=== PATIENT | female | born 1940 | race Caucasian/White ===

== ENCOUNTER 2020-03-31 16:45 | Emergency (ER) | payer OTHER, SELFPAY ==
--- NOTE | ~2020-03-31 | XR_ITS ---
. EXAMINATION: XR abdomen/kub 1V DATE: 03/31/2020 18:05 INDICATION: Constipation. TECHNIQUE: A supine view of the abdomen on 2 radiographs was obtained. COMPARISON: Abdomen radiographs 05/30/2018, CT abdomen and pelvis 09/10/2018 FINDINGS: A large stool ball distends the rectum. There are no dilated loops of small bowel. There is a 13 mm stone in left kidney. IMPRESSION: 1. Stool distends the rectum. 2. Left kidney stone. Reviewed, dictated and finalized at location A.
[2020-03-31 16:52] VITALS: BP 105/53; PULSE 66; RESP 16; TEMP 36.9; O2SAT 100
[2020-03-31 17:53] LABS: Basophils Percent Auto 0.5 % (0.2-1.2); Eosinophils Absolute Auto 0.4 K/mm3 (0-0.3); Eosinophils Percent Auto 5.4 % (0-4.4); Hematocrit 35.3 % (37.0-47.0); Hemoglobin 11.6 g/dL (12.0-15.0); Immature Granulocyte Absolute 0.08 K/mm3 (0.00-0.031); Immature Granulocyte Percent A 1.2 % (0-0.5); Lymphocytes Absolute Auto 1.53 K/mm3 (0.9-3.2); Mean Corpuscular HGB Conc 32.9 g/dl (32-36); Mean Corpuscular Hemoglobin 34.8 pg (26-34); Mean Platelet Volume 10.5 fl (7.4-10.4); Monocytes Absolute Auto 0.8 K/mm3 (0.1-0.6); Neutrophils Absolute Auto 3.8 K/mm3 (1.3-6.7); Neutrophils Percent Auto 57.9 % (45.5-73.1); Platelet Count Result 231 k/mm3 (150-375); Red Blood Count 3.33 M/mm3 (4.2-5.4); Red Cell Distribution Width 15.6 % (11.5-14.5); White Blood Count 6.6 K/mm3 (4.5-10.0)
[2020-03-31 18:04] LABS: Alanine Aminotransferase 35 U/L (4-35); Albumin Level 3.3 g/dL (3.5-5.1); Alkaline Phosphatase 97 U/L (38-126); Aspartate Amino Transferase 24 U/L (14-36); Blood Urea Nitrogen 37 mg/dL (7-17); Calcium 9.7 mg/dL (8.4-10.2); Carbon Dioxide 21 mmol/L (22-30); Chloride 110 mmol/L (98-107); Estimated Glomerular Filt Rate 54; Glucose 87 mg/dL (65-105); Lipase 66 U/L (23-300); Potassium 5.4 mmol/L (3.4-5.0); Sodium 137 mmol/L (137-145)
--- NOTE | 2020-03-31 18:48 | ED.ABDPAIN ---
HPI - Abdominal Pain General Chief Complaint: Abdominal Pain Stated Complaint: no bm Time Seen by Provider: 03/31/20 18:44 Source: patient and family History of Present Illness HPI narrative: Patient is 79 years old white female lives with her daughter, came to the emergency room because of inability to push hard to get the stool out. 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 Patient denies any fever, chills, nausea, vomiting, abdominal pain. Related Data Home Medications Medication Instructions Recorded Confirmed aspirin 81 mg PO DAILY 07/03/19 09/20/19 meloxicam 7.5 mg PO HS 07/03/19 09/20/19 pravastatin 40 mg PO DAILY 07/03/19 09/20/19 Tumeric 500 mg PO DAILY 09/19/19 09/20/19 alendronate 70 mg PO WEEKLY 09/19/19 09/20/19 ascorbate calcium-bioflavonoid 1 tablet PO QID 09/19/19 09/20/19 [Katie-C with Bioflavonoids] [id number]-hpsekkbh-rmn-hyalur 1 tablet PO 09/19/19 09/20/19 [Move Free Ultra (boron)] cholecalciferol (vitamin D3) 25 mcg PO DAILY 09/19/19 09/20/19 [Vitamin D3] cyanocobalamin (vitamin B-12) 1,000 mcg PO DAILY 09/19/19 09/20/19 [Vitamin B-12] folic acid 0.4 mg PO DAILY 09/19/19 09/20/19 latanoprost 1 drp OPHTHALMIC (EYE) QPM 09/19/19 09/20/19 magnesium oxide 400 mg PO DAILY 09/19/19 09/20/19 zinc 50 mg PO DAILY 09/19/19 09/20/19 docusate sodium 100 mg capsule 100 mg PO DAILY 09/20/19 09/20/19 ferrous sulfate 325 mg (65 mg 325 mg PO DAILY 09/20/19 09/20/19 iron) tablet travoprost 0.004 % eye drops 1 drop EACH EYE QPM 11/13/19 Allergies Allergy/AdvReac Type Severity Reaction Status Date / Time No Known Allergies Allergy Unknown Unverified 03/11/20 10:47 Review of Systems Review of Systems: Narrative: CONSTITUTIONAL: Denies fever, chills, or sweats. EYES: Denies visual changes, redness, or discharge. ENT: Denies rhinorrhea, congestion, sore throat, or otalgia. CARDIOVASCULAR: Denies chest pain, palpitations, or edema. RESPIRATORY: Denies cough or dyspnea. GASTROINTESTINAL: Denies abdominal pain, nausea, vomiting, or diarrhea., Unable to have bowel movement GENITOURINARY: Denies dysuria or hematuria. SKIN: Denies rash or itching. MUSCULOSKELETAL: Denies back pain, joint pain, or myalgia. NEUROLOGIC: Denies headache, numbness, or weakness. PSYCHIATRIC: Denies anxiety or depression. PMFSH Past Medical History Medical History High cholesterol Thyroid disease Family History Family History Mother Family history of pancreatic cancer, Onset Age: 82 Father Patient's father is Social History Social History Social History: Smoking status: Never smoker Second hand tobacco smoke exposure: No Alcohol intake: never Substance use: never Substance use type: does not use Gender identity (if verbalized by the patient): Female Exam Narrative: Exam Narrative: General appearance: Well-developed, well-nourished Skin: Normal color Head: Normocephalic, nontraumatic Eyes: Clear conjunctiva ENT: Oropharynx normal, ears normal, nose normal Neck: Supple, nontender Chest and respiratory: Airway patent, no respiratory distress, no accessory muscle use Heart: Regular rate/rhythm Abdomen: Soft, nontender, no organomegaly, quiet bowel sounds Vascular: Normal peripheral pulses, normal capillary refill. Musculoskeletal: Normal range of motion, nontender back Neurologic: Alert and oriented ?3, MANAGER [employer] is normal as tested, no gross motor deficit
[2020-03-31 18:55] VITALS: BP 105/57; PULSE 60; RESP 18; O2SAT 100
--- NOTE | 2020-03-31 19:38 | PC.NURSE ---
rn at bedside for soap suds enema
--- NOTE | 2020-03-31 19:38 | PC.NURSE ---
PER ERP Dr. Funez IV insertion not needed at this time.
[2020-03-31 20:17] LABS: Add Urine Microscopic? YES; Amorphous Sediment Urine Few; Appearance Urine Clear (Clear); Bilirubin Urine Negative (Negative); Blood Urine Negative (Negative); Color Urine Yellow (Yellow); Glucose Urine UA Negative (Negative); Ketones Urine Negative (Negative); Leukocyte Esterase Ur Negative LEU/UL (Negative); Nitrate Urine Negative (Negative); Protein Urine Negative (Negative); Specific Grav Ur 1.021 (1.001-1.035); Squamous Epithelial Cell Urine Rare /hpf (Few); Urobilinogen Urine Negative mg/dL (<2.0)
[2020-03-31 21:13] VITALS: BP 131/54; PULSE 79; RESP 18; O2SAT 98
== END 2020-03-31 20:45 | disposition home or self-care (01) ==
PROVIDERS: Emergency Medicine; Emergency Provider Emergency Medicine; PCP Family Medicine
DX: K59.00 Constipation, unspecified (principal); E78.5 Hyperlipidemia, unspecified
CPT/HCPCS: 36415; 51701; 74018; 80053; 81001; 83690; 85025; 99283

== ENCOUNTER 2020-04-07 10:59 | Inpatient (IN) | payer OTHER, SELFPAY ==
[2020-04-07] VITALS (7 sets, daily range): BP systolic 95–118; BP diastolic 58–79; PULSE 80–121; RESP 17–20; TEMP 35.9–36.4; O2SAT 94–100; BMI 26.0
--- NOTE | ~2020-04-07 | CT_ITS ---
EXAMINATION: CT brain wo con DATE: 04/07/2020 12:21 INDICATION: Altered mental state. Decreased responsiveness. TECHNIQUE: Computed tomography (CT) of the head was performed without intravenous contrast. The mA wa s adjusted according to patient size. Iterative reconstruction technique was employed. Exam dose: 83 2.33 mGy-cm total exam DLP. COMPARISON: None FINDINGS: Examination is limited by motion artifact Prominent bilateral carotid siphon internal carotid artery calcifications are noted. There is cerebral atrophy. No intracranial mass lesion or hemorrhage, midline shift shift or mass eff ect. No cerebrovascular accident is evident. No subdural or epidural hematoma. No fracture or bone destruction of the cranial vault. Bilateral hyperostosis frontalis interna, not l ikely of any clinical significance. There is mild posterior mucoperiosteal thickening of the left sphenoid sinus and minimal soft tissue thickening of the left ethmoid air cells. The paranasal sinuses and mastoid air cells are otherwise u nremarkable. IMPRESSION: Cerebral atherosclerosis and cerebral atrophy; no acute intracranial finding Reviewed, dictated and finalized at [facility]. Reviewed, dictated and finalized at location B. IMPRESSION: Cerebral atherosclerosis and cerebral atrophy; no acute intracrani al finding
--- NOTE | ~2020-04-07 | US_ITS ---
EXAMINATION: US carotid duplex BI DATE: 04/08/2020 14:08 INDICATION: Carotid stenosis. TECHNIQUE: Grayscale, color Doppler, and pulsed Doppler images of the cervical carotid arteries were obtained. The degree of vessel stenosis is placed in one of the following categories: normal, <50%, 5 0-69%, >=70% but less than near-occlusion, near-occlusion, or total occlusion. Note that percent sten osis relative to normal distal artery lumen diameter is indirectly measured from velocity measurement s as described by Devon, et al. Radiology 2003; 229:[id number]. COMPARISON: None. FINDINGS: RIGHT: The right common carotid artery (CCA) peak systolic velocity (PSV) is 50 cm/s. The right internal car otid artery (ICA) PSV is 54 cm/s. The right ICA end-diastolic velocity (EDV) is 17 cm/s. The right IC A/CCA PSV ratio is 1.1. Grayscale and color Doppler images yield an estimate of <50% diameter reducti on from plaque in the ICA. There is antegrade flow in the right vertebral artery. LEFT: The left CCA PSV is 65 cm/s. The left ICA PSV is 63 cm/s. The left ICA EDV is 19 cm/s. The left ICA/C CA PSV ratio is 1.0. Grayscale and color Doppler images yield an estimate of <50% diameter reduction from plaque in the ICA. There is antegrade flow in the left vertebral artery. IMPRESSION: 1. <50% stenosis in the right internal carotid artery. 2. <50% stenosis in the left internal carotid artery. Reviewed, dictated and finalized at location A.
--- NOTE | ~2020-04-07 | CT_ITS ---
EXAMINATION: CT abdomen pelvis wo con EXAM DATE: 04/08/2020 15:25 INDICATION: Abdominal pain. UTI, sepsis, delirium. TECHNIQUE: Spiral CT of the abdomen and pelvis was performed without contrast. Axial, coronal and s agittal images were reviewed. The dose-length product (DLP) for this examination was 623.94 mGy-cm. The exposure was tailored according to patient size (auto mA exposure control), and iterative recons truction (ASIR) was used as additional dose reduction technique. There is no prior study for compari son. FINDINGS: The liver, spleen, adrenal glands and pancreas are unremarkable. Gallbladder is unremarkab le. No biliary obstruction. Left renal pelvic nonobstructing stone measuring 1.4 cm, several smalle r left calyceal stones. There is a punctate right inferior calyceal stone. There is mild to moderate bilateral renal atrophy. Exophytic fluid density left renal lesion consistent with cyst measuring 3.6 cm. The uterus is unremarkable. Bladder is severely distended with diffuse wall thickening, appea sue consistent with cystitis. Garcia catheter in position. There is no retroperitoneal or pelvic lym phadenopathy. There is moderate scattered arteriosclerotic disease. The appendix is not positively visualized. There is no pericecal inflammatory change to suggest appe ndicitis. There is fecal impaction with the rectal vault measuring 10 cm. The stomach and small jesus l are unremarkable. There is moderate splenic flexure colonic diverticulosis. There is no adjacent i nflammatory change to suggest diverticulitis. No free intraperitoneal gas. The heart is normal in size. There are no pericardial or pleural effusions. The lung bases are unremarkable. There are no osteoblastic or osteolytic lesions identified. IMPRESSION: 1. Fecal impaction. 2. Large left renal pelvic nonobstructing stone. 3. Severely distended bladder, wall thickening. Acute and/or chronic cystitis. Garcia catheter in pos ition. 4. Colonic diverticulosis. Reviewed, dictated and finalized at location A. IMPRESSION: 1. Fecal impaction. 2. Large left renal pelvic nonobstructing stone. 3. Severely distended bladder, wall thickening. Acute and/or chronic cystitis. Garcia catheter in position. 4. Colonic diverticulosis.
--- NOTE | 2020-04-07 11:16 | ED.AMS ---
HPI - Altered Mental Status General Chief Complaint: Altered Mental Status Stated Complaint: AMS Time Seen by Provider: 04/07/20 11:15 Source: family and EMS Mode of arrival: EMS Limitations: altered mental status and clinical condition History of Present Illness HPI narrative: Patient is a 79-year-old female who presents for evaluation of altered mental status. Patient recently diagnosed with a urinary tract infection, was found to be confused this morning. Patient has been febrile at home per daughter. Patient has a history of urinary tract infection in the past with altered mentation concurrently as well. Patient was recently seen at this facility on the for constipation, urinalysis at that point was not indicative of a urinary tract infection. Patient's daughter states that her baseline is to be conversant with normal mental status. Per daughter, patient is DNR/DNI. Additional history cannot be obtained due to patient's altered mentation. Related Data Home Medications Medication Instructions Recorded Confirmed aspirin 81 mg PO DAILY 07/03/19 09/20/19 meloxicam 7.5 mg PO HS 07/03/19 09/20/19 pravastatin 40 mg PO DAILY 07/03/19 09/20/19 Tumeric 500 mg PO DAILY 09/19/19 09/20/19 alendronate 70 mg PO WEEKLY 09/19/19 09/20/19 ascorbate calcium-bioflavonoid 1 tablet PO QID 09/19/19 09/20/19 [Katie-C with Bioflavonoids] [id number]-imhaestu-pck-hyalur 1 tablet PO 09/19/19 09/20/19 [Move Free Ultra (boron)] cholecalciferol (vitamin D3) 25 mcg PO DAILY 09/19/19 09/20/19 [Vitamin D3] cyanocobalamin (vitamin B-12) 1,000 mcg PO DAILY 09/19/19 09/20/19 [Vitamin B-12] folic acid 0.4 mg PO DAILY 09/19/19 09/20/19 latanoprost 1 drp OPHTHALMIC (EYE) QPM 09/19/19 09/20/19 magnesium oxide 400 mg PO DAILY 09/19/19 09/20/19 zinc 50 mg PO DAILY 09/19/19 09/20/19 docusate sodium 100 mg capsule 100 mg PO DAILY 09/20/19 09/20/19 ferrous sulfate 325 mg (65 mg 325 mg PO DAILY 09/20/19 09/20/19 iron) tablet travoprost 0.004 % eye drops 1 drop EACH EYE QPM 11/13/19 Allergies Allergy/AdvReac Type Severity Reaction Status Date / Time No Known Allergies Allergy Unknown Unverified 03/11/20 10:47 Review of Systems Review of Systems: ROS unobtainable: Yes unobtainable due to mental status PMFSH Past Medical History Medical History (Updated 04/07/20 @ 13:19 by Steph Pierson MD) Ambulatory dysfunction Anemia due to stage 3 chronic kidney disease Chronic constipation Debility MCKNIGHT (dyspnea on exertion) Dyslipidemia Heart failure, unspecified High cholesterol Thyroid disease Surgical History Surgical History (Updated 04/07/20 @ 13:18 by Steph Pierson MD) History of bladder surgery Social History Social History Social History: Smoking status: Never smoker Second hand tobacco smoke exposure: No Alcohol intake: never Substance use: never Substance use type: does not use Gender identity (if verbalized by the patient): Female Exam Narrative: Exam Narrative: GENERAL: Awake, moaning HEAD: Normocephalic, atraumatic. EYES: PERRLA and EOMI. ENT: Nares clear, no rhinorrhea or epistaxis. Mucous membranes dry NECK: Supple. CHEST: Borderline tachypneic, no respiratory distress, breathing even and non labored HEART: Regular rate, sinus rhythm ABDOMEN:Non distended, grimaces with palpation of suprapubic palpation EXTREMITIES: Normal range of motion. No edema. SKIN: Warm, dry, no rash. NEURO: Moving all extremities spontaneously, cannot follow simple commands, cannot complete other neurological testing, will state name, otherwise is not oriented to place, time Course Vital Signs Vital signs: Vital Signs Temperature 36.4 C 04/07/20 11:05 Pulse Rate 86 04/07/20 11:05 Respiratory Rate 17 04/07/20 11:05 Blood Pressure 107/61 04/07/20 11:05 Pulse Oximetry 94 04/07/20 11:05 Temperature 36.4 C 04/07/20 11:05 Pulse Ra
[2020-04-07] MEDS: SODIUM CHLORIDE 0.9% IV 1,000 ML 999 ML IV CONT ×2 (11:52→13:04)
[2020-04-07 12:07] LABS: Basophils Absolute Auto 0.2 K/mm3 (0.0-0.1); Basophils Percent Auto 0.6 % (0.2-1.2); Hematocrit 33.1 % (37.0-47.0); Hemoglobin 10.3 g/dL (12.0-15.0); Immature Granulocyte Absolute 0.73 K/mm3 (0.00-0.031); Immature Granulocyte Percent A 3.1 % (0-0.5); Lymphocytes Absolute Auto 1.75 K/mm3 (0.9-3.2); Lymphocytes Percent Auto 7.5 % (18.3-44.2); Mean Corpuscular HGB Conc 31.1 g/dl (32-36); Mean Corpuscular Hemoglobin 34.7 pg (26-34); Mean Corpuscular Volume 111.4 fl (80-100); Monocytes Absolute Auto 1.5 K/mm3 (0.1-0.6); Monocytes Percent Auto 6.5 % (2.6-8.5); Neutrophils Absolute Auto 19.1 K/mm3 (1.3-6.7); Neutrophils Percent Auto 82.3 % (45.5-73.1); Platelet Count Result 192 k/mm3 (150-375); Red Blood Count 2.97 M/mm3 (4.2-5.4); Red Cell Distribution Width 16.3 % (11.5-14.5); White Blood Count 23.3 K/mm3 (4.5-10.0)
[2020-04-07 12:11] LABS: Glucose Point of Care 104 (65-105)
[2020-04-07 12:20] LABS: Alanine Aminotransferase 24 U/L (4-35); Albumin Level 2.4 g/dL (3.5-5.1); Alkaline Phosphatase 134 U/L (38-126); Ammonia < 9 umol/L (9-30); Aspartate Amino Transferase 13 U/L (14-36); Bilirubin,Total 0.8 mg/dL (0.2-1.3); Blood Urea Nitrogen 66 mg/dL (7-17); Calcium 8.5 mg/dL (8.4-10.2); Carbon Dioxide 13 mmol/L (22-30); Chloride 118 mmol/L (98-107); Estimated Glomerular Filt Rate 36; Glucose 90 mg/dL (65-105); Potassium 4.4 mmol/L (3.4-5.0); Sodium 140 mmol/L (137-145)
[2020-04-07 12:21] LABS: INR 1.7; Prothrombin Time 19.6 Seconds (11.1-14.7)
[2020-04-07 12:22] LABS: Partial Thromboplastin Time 29.2 SECONDS (22.3-36.8)
[2020-04-07 12:32] LABS: Troponin I 0.029 ng/mL (0.000-0.034)
[2020-04-07 12:38] LABS: Add Urine Microscopic? YES; Appearance Urine Turbid (Clear); Bacteria Urine 3+ /hpf; Bilirubin Urine 1+ (Negative); Blood Urine 1+ (Negative); Glucose Urine UA Negative (Negative); Ketones Urine Trace mg/dL (Negative); Leukocyte Esterase Ur Trace LEU/UL (Negative); Mucus Urine Few /lpf; Nitrate Urine Negative (Negative); Protein Urine 3+ mg/dL (Negative); RBC Urine >75 /hpf (0-2); Specific Grav Ur 1.015 (1.001-1.035); WBC Urine 31-50 /hpf
[2020-04-07 12:41] LABS: Color Urine Dark Yellow (Yellow)
--- NOTE | 2020-04-07 12:44 | PC.NURSE ---
Lab at bedside; unable to hang IV antibiotics at this time.
[2020-04-07 12:51] LABS: Thyroid Stimulating Hormone 0.682 uIU/mL (0.465-4.680)
[2020-04-07 13:33] LABS: Lactic Acid Reflex 1.5 mmol/L (0.7-2.1)
--- NOTE | 2020-04-07 15:21 | ECG_ITS ---
Measurements Intervals [place] Rate: 88 P: 67 IN: 138 QRS: -25 QRSD: 92 T: 91 QT: 344 QTc: 417 Interpretive Statements SINUS RHYTHM BORDERLINE T WAVE ABNORMALITY- DIFFUSE LEADS BASELINE ARTIFACT- V4-V6 BORDERLINE ECG Electronically Signed On 04-07-2020 15:36:56 CDT by Kashif Flores D.O.
--- NOTE | 2020-04-07 15:55 | PC.NURSE ---
This patient, Jacqueline Osorio, was admitted to Medical Room 247-. Patient/family oriented to hospital policies and general routines including ID bracelet, bed and alarms, visiting hours, pain management, procedures, bathroom and other care routines, personal items, smoking policy, room service/diet, and visiting hours. Valuables list has been completed. Information on how to activate the Rapid Response Team has been discussed. Patient/Family are encouraged to report perceived risks to care and to ask questions if they do not understand what they are told or what they should do.
[2020-04-07] MEDS: SODIUM CHLORIDE 0.9% IV 1,000 ML 125 ML IV CONT (16:40)
[2020-04-07 16:54] LABS: Glucose Point of Care 103 (65-105)
--- NOTE | 2020-04-07 22:38 | PM.IMHP ---
H&P: HPI History of Present Illness Chief complaint: UTI/Sepsis/Delirium Narrative: Jacqueline Osorio is a 79 year old female Who was brought into the emergency room for evaluation of altered mental status. Patient was recently diagnosed with the urinary tract infection was found to be confused this morning. Looking at her urinalysis looks like she still has UTI. The patient has been febrile home for the daughter. She is had altered mental status changes when she has a urinary tract infection. CT scan of the brain shows nothing acute. Patient was recently in the emergency room on the of this month for constipation typically the patient will converse with normal mental status. The daughter stated that the patient is a DNI DNR. Patient is a poor historian and information had to be obtained from the records. Review of Systems Review of Systems: All systems reviewed & are unremarkable except as noted in HPI and below ROS unobtainable: Yes unobtainable due to mental status Constitutional: Constitutional: Reports as per HPI and Reports no additional constitutional complaints Eyes: Eyes: Reports as per HPI and Reports no additional eye complaints ENT: Reports system reviewed and no additional complaints, except as documented and Reports Normal hearing present Cardiovascular: Cardiovascular: Reports no additional cardiovascular complaints Respiratory: Respiratory: Reports no additional respiratory complaints and Reports no additional respiratory complaints Gastrointestinal: Gastrointestinal: Reports as per HPI and Reports no additional gastrointestinal complaints Musculoskeletal: Musculoskeletal: Reports no additional musculoskeletal complaints Integumentary/Breasts: Skin/Breast: Reports system reviewed and no additional complaints, except as docu and Reports as per HPI Neurologic: Reports system reviewed and no additional complaints, except as documented, Reports as per HPI and Reports Normal hearing present Psychiatric: Psychiatric: Reports no additional psychiatric complaints and Reports as per HPI Endocrine: Endocrine: Reports no additional endocrine complaints Hematologic/Lymphatic: Hematologic/Lymphatic: Reports no additional hematologic/lymphatic complaints Allergic/Immunologic: Allergic/Immunologic: Reports no additional allergic/immunologic complaints [facility] Past Medical History Medical History (Updated 04/07/20 @ 22:47 by Carmen Corley NP) Ambulatory dysfunction Anemia due to stage 3 chronic kidney disease Carotid stenosis Chronic constipation Debility Depression MCKNIGHT (dyspnea on exertion) Dyslipidemia Glaucoma Heart failure, unspecified High cholesterol Hypothyroidism Kidney stone ESWL x2 Osteoarthritis Thyroid disease Surgical History Surgical History (Updated 04/07/20 @ 22:44 by Carmen Corley NP) H/O bilateral cataract extraction H/O lithotripsy x3 H/O tubal ligation History of bladder surgery History of renal stent History of tonsillectomy Family History Family History Mother Family history of pancreatic cancer, Onset Age: 82 Father Patient's father is Colon cancer Sibling Congestive heart failure Social History Social History (Updated 04/07/20 @ 22:44 by Carmen Corley NP) Social History: . Retired from [employer]. 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 She has 3 children. She was living with her daughter and son-in-law. Lifelong nonsmoker. She does not use any marijuana alcohol or illicit drugs. Second hand tobacco smoke exposure: No Alcohol intake: never Substance use: never Substance use type: does not use Gender identity (if verbalized by the patient): Female Spiritual care concerns: Yes (Latter-Day) Meds Home Medications and Allergies Home Medications Medication Instructions Recorded Confirmed Type aspirin 81 mg PO DAILY 07/03/19 04/07/20 History meloxica
[2020-04-08 02:00] VITALS: BP 111/43; PULSE 101; RESP 20; TEMP 36.2; O2SAT 96
[2020-04-08] MEDS: SODIUM CHLORIDE 0.9% IV 1,000 ML 125 ML IV CONT (02:44)
[2020-04-08 05:27] LABS: Basophils Absolute Auto 0.1 K/mm3 (0.0-0.1); Basophils Percent Auto 0.2 % (0.2-1.2); Hematocrit 32.7 % (37.0-47.0); Hemoglobin 9.8 g/dL (12.0-15.0); Immature Granulocyte Absolute 0.49 K/mm3 (0.00-0.031); Immature Granulocyte Percent A 1.8 % (0-0.5); Lymphocytes Absolute Auto 1.77 K/mm3 (0.9-3.2); Lymphocytes Percent Auto 6.7 % (18.3-44.2); Mean Corpuscular Hemoglobin 33.9 pg (26-34); Mean Corpuscular Volume 113.1 fl (80-100); Mean Platelet Volume 10.8 fl (7.4-10.4); Monocytes Absolute Auto 1.8 K/mm3 (0.1-0.6); Monocytes Percent Auto 6.6 % (2.6-8.5); Neutrophils Absolute Auto 22.5 K/mm3 (1.3-6.7); Neutrophils Percent Auto 84.7 % (45.5-73.1); Platelet Count Result 185 k/mm3 (150-375); Red Blood Count 2.89 M/mm3 (4.2-5.4); Red Cell Distribution Width 16.3 % (11.5-14.5); White Blood Count 26.6 K/mm3 (4.5-10.0)
[2020-04-08] MEDS: LEVOTHYROXINE SODIUM 25 MCG TABLET PO (05:40)
[2020-04-08 05:41] LABS: Alanine Aminotransferase 22 U/L (4-35); Albumin Level 2.2 g/dL (3.5-5.1); Alkaline Phosphatase 165 U/L (38-126); Aspartate Amino Transferase 16 U/L (14-36); Bilirubin,Total 0.6 mg/dL (0.2-1.3); Blood Urea Nitrogen 75 mg/dL (7-17); Calcium 8.5 mg/dL (8.4-10.2); Carbon Dioxide 13 mmol/L (22-30); Chloride 120 mmol/L (98-107); Estimated Glomerular Filt Rate 34; Glucose 94 mg/dL (65-105); Magnesium 2.8 mg/dL (1.6-2.3); Potassium 4.7 mmol/L (3.4-5.0); Sodium 141 mmol/L (137-145)
[2020-04-08 06:19] LABS: CRP 33.3 mg/dL (<1.0)
[2020-04-08 06:30] LABS: Thyroid Stimulating Hormone Reflex 0.584 uIU/mL (0.465-4.68)
[2020-04-08 09:19] LABS: Alveolar/Arterial O2 Gradient 32.5 mmHg; Base Excess ABG -11.3 mEq/l (+/-2.0); Carboxyhemoglobin 0.2 % THb (0-2.0); Fractional Inspired Oxygen 21 %; HCO3 ABG 10.7 mEq/l (22.0-26.0); Oxygen Content ABG 13.9 %vol (16.0-22.0); Oxygen Saturation ABG 97.9 % (95.0-100.0); Oxyhemoglobin 96.2 % THb (90.0-100.0); PO2 ABG 98.2 mmHg (80.0-100.0); PO2 FiO2 Ratio Arterial Blood 4.68 %; Reduced Hemoglobin 2.6 %THb (0-5.0); Total Hemoglobin 10.2 g/dL (12.0-18.0); pH ABG 7.444 (7.350-7.450)
[2020-04-08 09:20] LABS: PCO2 ABG 15.9 mmHg (35.0-45.0)
[2020-04-08 09:21] LABS: Device ROOM AIR
[2020-04-08 09:27] LABS: Site Drawn LEFT BRACHIAL
[2020-04-08] MEDS: PRAVASTATIN SODIUM 20 MG TABLET 40 MG PO (09:48)
[2020-04-08] MEDS: ASPIRIN 81 MG CHEWABLE TABLET PO (09:57)
[2020-04-08] MEDS: LACTATED RINGERS 1,000 ML 100 ML IV CONT ×2 (10:03→20:13)
--- NOTE | 2020-04-08 12:20 | PM.IMPN ---
Progress Note: A&P Assessment and Plan (1) UTI (urinary tract infection): Qualifiers: Hematuria presence: without hematuria Urinary tract infection type: acute cystitis Qualified Code(s): N30.00 - Acute cystitis without hematuria Code(s): N39.0 - Urinary tract infection, site not specified Status: Acute Assessment and Plan: -----UA suspicious for UTI but awaiting conformation with culture. Will continue ceftriaxone at this time. No hx of resistent pathogens in the EMR. Pts WBC slightly increased compared to yesterday but I suspect it will get better with additional abx. I called her daughter and spoke to her about the severity of this infx since she is still confused and her kidney function is going up. She had significant pain on exam so I am going to do a bladder scan and a CT abd/pelv to ensure no hydronephrosis. Pt still confused. Guarded prognosis, continue abx. Abg reviewed. (2) Delirium: Code(s): R41.0 - Disorientation, unspecified Status: Acute Assessment and Plan: ----- Most likely due to the urinary tract infection. CT scan of the brain was negative. Anticipate this will improve with treatment. (3) Hypothyroidism: Code(s): E03.9 - Hypothyroidism, unspecified Status: Chronic Assessment and Plan: -----TSH WNL. (4) Depression: Code(s): F32.9 - Major depressive disorder, single episode, unspecified Status: Chronic Assessment and Plan: -----chronic. (5) Dyslipidemia: Code(s): E78.5 - Hyperlipidemia, unspecified Status: Chronic Assessment and Plan: ------continue pravastatin. (6) Anemia due to stage 3 chronic kidney disease: Code(s): N18.3 - Chronic kidney disease, stage 3 (moderate); D63.1 - Anemia in chronic kidney disease Status: Acute Assessment and Plan: -----hgb stable. pt has a hx of hemolytic anemia according to daughter. will monitor (7) Heart failure, unspecified: Code(s): I50.9 - Heart failure, unspecified Status: Acute Assessment and Plan: ------ Diastolic congestive heart failure, euvolemic. (8) Sepsis: Code(s): A41.9 - Sepsis, unspecified organism Status: Acute Assessment and Plan: -----d/t UTI with leukocytosis and tachycardia. See tx plan above. Time Spent With Patient Time with patient: 25 - 35 minutes Subjective Date/time seen: 04/08/20 12:20 Interval history: Pt is a 79 y/o female here for UTI and sepsis. Pt was seen today and is confused. She answers some questions correctly but then keeps saying 'dada' when I ask other questions. She has no specific complaints but states she feels half better . I called and spoke with her daughter who states that the pt is usually A&O x 4 but says 'random things' occasionally. She usually answers all questions appropriately. She suffers from chronic constipation and needs an enema usually once a week. She has a hx of kidney failure per daughter. Review of Systems Review of Systems: All systems reviewed & are unremarkable except as noted in HPI and below Exam Narrative: Exam Narrative: General: Well developed well nourished patient resting in bed in NAD HEENT: normocephalic Neck: supple Neuro: Alert and oriented to herself only. All other questions she kept repeating her name. She had decreased wharf hand strength bilaterally but no overt weakness on one side. CN 2-12 intact. Would not cooperate with LE exam. CV:RRR Resp:CTA Abd: Soft, non distended. significant pain to palpation in all areas. Positive bowel sounds Extremities: No swelling, erythema, or pain to palpation. Objective Data Vital Signs Vital Signs: Vital Signs - 24 hr 04/07/20 13:05 04/07/20 14:40 04/07/20 15:05 Temperature Pulse Rate 90 92 80 Respiratory Rate 20 Blood Pressure 116/66 118/68 Pulse Oximetry 98 96 98 04/07/20 16:00 04/07/20 20:00 03/19
[2020-04-08 14:00] VITALS: BP 124/44; PULSE 91; RESP 14; TEMP 36.5; O2SAT 95
[2020-04-08 15:22] LABS: Lactic Acid Reflex 2.1 mmol/L (0.7-2.1)
--- NOTE | 2020-04-08 16:19 | PHAR ---
HOME MED VERIFIED LINZESS 290[employer] CAPSULE ONCE DAILY
[2020-04-08] MEDS: LATANOPROST 0.005% OP SOLN 2.5 ML BTL 1 DROP EACH EYE (17:08)
[2020-04-08] MEDS: traMADol HCL 50 MG TABLET PO (17:54)
[2020-04-08 18:09] LABS: Reflex Lactic Acid Yes or No Add Lactic
[2020-04-08 19:08] LABS: Lactic Acid 2.5 mmol/L (0.7-2.1)
[2020-04-08] MEDS: MELOXICAM 7.5 MG TABLET PO (20:14)
[2020-04-08] MEDS: PSYLLIUM POWDER PACKET 1 PACKET PO (20:27)
[2020-04-08 21:17] VITALS: BP 95/49; PULSE 100; RESP 16; TEMP 36.9; O2SAT 90
[2020-04-09] MEDS: LACTATED RINGERS 1,000 ML 100 ML IV CONT (05:56)
[2020-04-09 06:00] VITALS: BP 107/57; PULSE 107; RESP 12; TEMP 36.6; O2SAT 96
[2020-04-09 06:01] LABS: Basophils Percent Auto 0.2 % (0.2-1.2); Hematocrit 28.3 % (37.0-47.0); Hemoglobin 8.6 g/dL (12.0-15.0); Immature Granulocyte Absolute 0.61 K/mm3 (0.00-0.031); Immature Granulocyte Percent A 2.4 % (0-0.5); Lymphocytes Absolute Auto 1.63 K/mm3 (0.9-3.2); Lymphocytes Percent Auto 6.4 % (18.3-44.2); Mean Corpuscular HGB Conc 30.4 g/dl (32-36); Mean Corpuscular Hemoglobin 34.3 pg (26-34); Mean Corpuscular Volume 112.7 fl (80-100); Mean Platelet Volume 10.9 fl (7.4-10.4); Monocytes Absolute Auto 1.4 K/mm3 (0.1-0.6); Monocytes Percent Auto 5.5 % (2.6-8.5); Neutrophils Absolute Auto 21.8 K/mm3 (1.3-6.7); Neutrophils Percent Auto 85.5 % (45.5-73.1); Platelet Count Result 171 k/mm3 (150-375); Red Blood Count 2.51 M/mm3 (4.2-5.4); Red Cell Distribution Width 16.2 % (11.5-14.5); White Blood Count 25.5 K/mm3 (4.5-10.0)
[2020-04-09] MEDS: LEVOTHYROXINE SODIUM 25 MCG TABLET PO (06:01)
[2020-04-09 06:16] LABS: Alanine Aminotransferase 22 U/L (4-35); Albumin Level 2.1 g/dL (3.5-5.1); Alkaline Phosphatase 208 U/L (38-126); Anion Gap 10.2 mmol/L (7-16); Aspartate Amino Transferase 17 U/L (14-36); Bilirubin,Total 0.6 mg/dL (0.2-1.3); Blood Urea Nitrogen 77 mg/dL (7-17); Calcium 8.5 mg/dL (8.4-10.2); Carbon Dioxide 15 mmol/L (22-30); Chloride 118 mmol/L (98-107); Estimated Glomerular Filt Rate 31; Glucose 109 mg/dL (65-105); Potassium 4.2 mmol/L (3.4-5.0); Sodium 139 mmol/L (137-145)
[2020-04-09] MEDS: LACTULOSE 20 GM/30 ML UDC 10 GM PO (08:21)
[2020-04-09 09:42] LABS: Lactic Acid Reflex 1.7 mmol/L (0.7-2.1)
[2020-04-09 13:55] VITALS: BP 139/76; PULSE 70; RESP 22; TEMP 36.2; O2SAT 95
--- NOTE | 2020-04-09 16:34 | PM.IMPN ---
Progress Note: A&P Assessment and Plan (1) UTI (urinary tract infection): Qualifiers: Hematuria presence: without hematuria Urinary tract infection type: acute cystitis Qualified Code(s): N30.00 - Acute cystitis without hematuria Code(s): N39.0 - Urinary tract infection, site not specified Status: Acute Assessment and Plan: -----Confirmed UTI with sensitivity to ceftriaxone. Pt is not doing better clinically and WBC and Cr remain elevated. She aspirated on liquids this morning. I spoke with Nancy, daughter and she states her mom has gone through so much with UTIs over the last years and is miserable. She understands the severity of the pts condition and has opted for comfort care and hosice. She wants no w/u for the aspiration and to stop abx. She is going to speak with hospice tomorrow. (2) Delirium: Code(s): R41.0 - Disorientation, unspecified Status: Acute Assessment and Plan: ----- Most likely due to the urinary tract infection. CT scan of the brain was negative. (3) Hypothyroidism: Code(s): E03.9 - Hypothyroidism, unspecified Status: Chronic Assessment and Plan: -----TSH WNL. (4) Depression: Code(s): F32.9 - Major depressive disorder, single episode, unspecified Status: Chronic Assessment and Plan: -----chronic. (5) Dyslipidemia: Code(s): E78.5 - Hyperlipidemia, unspecified Status: Chronic Assessment and Plan: ------continue pravastatin. (6) Anemia due to stage 3 chronic kidney disease: Code(s): N18.3 - Chronic kidney disease, stage 3 (moderate); D63.1 - Anemia in chronic kidney disease Status: Acute Assessment and Plan: -----hgb stable. pt has a hx of hemolytic anemia according to daughter. (7) Heart failure, unspecified: Code(s): I50.9 - Heart failure, unspecified Status: Acute Assessment and Plan: ------ Diastolic congestive heart failure, chronic. (8) Sepsis: Code(s): A41.9 - Sepsis, unspecified organism Status: Acute Assessment and Plan: -----d/t UTI with leukocytosis and tachycardia. See tx plan above. Subjective Date/time seen: 04/09/20 16:34 Interval history: Pt is a 79 y/o female here for UTI and sepsis. Pt was seen today and is confused but able to answer questions. She states she feels bad all over and a little SOB. She kept saying she had to urinate and wanted to get up to do so but I explained to her that she had a catheter. She cannot recall events earlier today but says shes been sleeping . I called the daughter Cristiane who did not answer but someone else answered her phone and said she was on her way to the hospital so I am going to check back in about 20 min to see if she is there. Exam Narrative: Exam Narrative: General: elderly pt resting in bed in NAD but with audible rhonchi with gurgling HEENT: normocephalic Neck: supple Neuro: Alert and oriented to herself and location. She had decreased integrated specialist strength bilaterally but no overt weakness on one side. CN 2-12 intact. LE strength weak bilaterally CV:RRR Resp:Audible rhonchi and gurgling. I tried to suction her mouth but it appears deeper than that. She has a weak cough. Abd: Soft, non distended. significant pain to palpation in all areas. Positive bowel sounds Extremities: No swelling, erythema, or pain to palpation. Objective Data Vital Signs Vital Signs: Vital Signs - 24 hr 04/08/20 21:17 04/09/20 06:00 04/09/20 13:55 Temperature 98.4 F 97.8 F 97.1 F L Pulse Rate 100 107 H 70 Respiratory Rate 16 12 22 H Blood Pressure 95/49 L 107/57 L 139/76 Pulse Oximetry 90 96 95 Intake/Output Intake/Output: Intake & Output 04/06/20 04/07/20 04/08/20 04/09/20 23:59 23:59 23:59 23:59 Intake Total 2300 3340 1010 Output Total 30 1125 375 Balance 2270 6245 645 Meds/Results Medications: Active Medications
[2020-04-09] MEDS: LATANOPROST 0.005% OP SOLN 2.5 ML BTL 1 DROP EACH EYE (17:41)
[2020-04-09 22:00] VITALS: BP 126/57; PULSE 108; RESP 18; TEMP 36.4; O2SAT 96
--- NOTE | 2020-04-10 05:49 | PC.NURSE ---
dr. mixon aware of inability to swallow and npo status. oral meds held, probable hospice discharge today, comfort care at present
[2020-04-10 06:00] VITALS: BP 98/50; PULSE 102; RESP 16; TEMP 36.2; O2SAT 95
[2020-04-10 14:00] VITALS: BP 125/71; PULSE 102; RESP 20; TEMP 36.8; O2SAT 98
--- NOTE | 2020-04-10 15:49 | PM.IMPN ---
Progress Note: A&P Assessment and Plan (1) UTI (urinary tract infection): Qualifiers: Hematuria presence: without hematuria Urinary tract infection type: acute cystitis Qualified Code(s): N30.00 - Acute cystitis without hematuria Code(s): N39.0 - Urinary tract infection, site not specified Status: Acute Assessment and Plan: -----Confirmed UTI with sensitivity to ceftriaxone. Pt is not doing better clinically and I spoke to her family 04/09 and they decided on hospice care. They are gonig to discharge on hospice tomorrow. She aspirated on liquids 04/09 but is very thirsty today. I will try thickened liquids and aspiration precautions to see if this helps. AKHIL Cruz states they want to go forward with hospice as her mom has gone through so much with UTIs over the last years and is miserable. She understands the severity of the pts condition and has opted for comfort care and hospice. She wants no w/u for the aspiration and to stop abx. (2) Delirium: Code(s): R41.0 - Disorientation, unspecified Status: Acute Assessment and Plan: ----- Most likely due to the urinary tract infection. CT scan of the brain was negative. (3) Hypothyroidism: Code(s): E03.9 - Hypothyroidism, unspecified Status: Chronic Assessment and Plan: -----TSH WNL. (4) Depression: Code(s): F32.9 - Major depressive disorder, single episode, unspecified Status: Chronic Assessment and Plan: -----chronic. (5) Dyslipidemia: Code(s): E78.5 - Hyperlipidemia, unspecified Status: Chronic Assessment and Plan: ------will discontinue medication. (6) Anemia due to stage 3 chronic kidney disease: Code(s): N18.3 - Chronic kidney disease, stage 3 (moderate); D63.1 - Anemia in chronic kidney disease Status: Acute Assessment and Plan: -----hgb stable. pt has a hx of hemolytic anemia according to daughter. (7) Heart failure, unspecified: Code(s): I50.9 - Heart failure, unspecified Status: Acute Assessment and Plan: ------ Diastolic congestive heart failure, chronic. (8) Sepsis: Code(s): A41.9 - Sepsis, unspecified organism Status: Acute Assessment and Plan: -----d/t UTI with leukocytosis and tachycardia. See tx plan above. Subjective Date/time seen: 04/10/20 15:49 Interval history: Pt is a 79 y/o female here for UTI and sepsis. Pt was seen today and is confused but able to answer questions. She says she is thirsty and constipated and she would like an enema. She does not have an apetite but hasn't had much of one since she lost her 10 years ago. She denies CP, SOB, fevers, chills, nausea or vomiting. Exam Narrative: Exam Narrative: General: elderly pt resting in bed in NAD HEENT: normocephalic Neck: supple Neuro: Alert and oriented to herself and location. She had decreased eyelet operator strength bilaterally but no overt weakness on one side. CN 2-12 intact. LE strength weak bilaterally CV:RRR Resp:CTA today--much improved Abd: Soft, non distended. Pain mostly in the LLQ. Positive bowel sounds Extremities: No swelling, erythema, or pain to palpation. Objective Data Vital Signs Vital Signs: Vital Signs - 24 hr 04/09/20 22:00 04/10/20 06:00 Temperature 97.6 F 97.2 F L Pulse Rate 108 H 102 H Respiratory Rate 18 16 Blood Pressure 126/57 L 98/50 L Pulse Oximetry 96 95 Intake/Output Intake/Output: Intake & Output 04/07/20 04/08/20 04/09/20 04/10/20 23:59 23:59 23:59 23:59 Intake Total 2300 3340 2010 Output Total 30 1125 475 500 Balance 2270 2215 1535 -500 Meds/Results Medications: Active Medications Generic Name Dose Route Start Last Admin Trade Name Freq PRN Reason Stop Dose Admin Docusate Sodium 100 mg 04/09/20 09:00 04/09/20 12:33 Colace Capsule PO Not Given MoTh@0900 [facility] Folic Acid 0.4 mg 04/08/20 09
--- NOTE | 2020-04-10 18:00 | PC.NURSE ---
I called pharmacy to request Latanaprost eye drops that are missing. They instructed me to look in the refrigerator and if they are not there to call them back.
--- NOTE | 2020-04-10 18:55 | PC.NURSE ---
The Latanaprost eye drops were not in the refrigerator so I called and left a message for pharmacy to send them up in the tube system. I will pass this along to the night nurse.
[2020-04-10] MEDS: LATANOPROST 0.005% OP SOLN 2.5 ML BTL 1 DROP EACH EYE (19:26)
[2020-04-10] MEDS: MORPHINE SULFATE 2 MG/ML INJ 1 MG IV PUSH (20:51)
[2020-04-10 22:00] VITALS: BP 125/55; PULSE 101; RESP 20; TEMP 36.4; O2SAT 96
[2020-04-11] MEDS: LEVOTHYROXINE SODIUM 25 MCG TABLET PO (05:43)
[2020-04-11 06:00] VITALS: BP 128/52; PULSE 98; RESP 18; TEMP 36.5; O2SAT 97
--- NOTE | 2020-04-11 10:58 | PM.DS ---
DS: Admitting Diagnosis Admitting Diagnosis Admitting Diagnosis: Acute cystitis without hematuria DS: Discharge Diagnosis Discharge Diagnosis (1) UTI (urinary tract infection): Qualifiers: Hematuria presence: without hematuria Urinary tract infection type: acute cystitis Qualified Code(s): N30.00 - Acute cystitis without hematuria Code(s): N39.0 - Urinary tract infection, site not specified Status: Acute Assessment and Plan: -----Confirmed UTI with sensitivity to ceftriaxone. Pt is not doing better clinically and I spoke to her family 04/09 and they decided on hospice care. The patient has had multiple UTIs and problems with chronic constipation and has been miserable for some time now. Pt is alert but not fully oriented and i'm unsure how much she actually retains. While hospitalized she aspirated on liquids and moved to a thickened diet which helped prevent ongoing aspiration. NancyAKHIL states they want to go forward with hospice as her mom has gone through so much with UTIs over the last years and is miserable. She understands the severity of the pts condition and has opted for comfort care and hospice. She wants no w/u for the aspiration and to stop abx. (2) Delirium: Code(s): R41.0 - Disorientation, unspecified Status: Acute Assessment and Plan: ----- Most likely due to the urinary tract infection. CT scan of the brain was negative. (3) Hypothyroidism: Code(s): E03.9 - Hypothyroidism, unspecified Status: Chronic Assessment and Plan: -----TSH WNL. (4) Depression: Code(s): F32.9 - Major depressive disorder, single episode, unspecified Status: Chronic Assessment and Plan: -----chronic. (5) Dyslipidemia: Code(s): E78.5 - Hyperlipidemia, unspecified Status: Chronic Assessment and Plan: ------will discontinue medication. (6) Anemia due to stage 3 chronic kidney disease: Code(s): N18.3 - Chronic kidney disease, stage 3 (moderate); D63.1 - Anemia in chronic kidney disease Status: Acute Assessment and Plan: -----hgb stable. pt has a hx of hemolytic anemia according to daughter. (7) Heart failure, unspecified: Code(s): I50.9 - Heart failure, unspecified Status: Acute Assessment and Plan: ------ Diastolic congestive heart failure, chronic. (8) Sepsis: Code(s): A41.9 - Sepsis, unspecified organism Status: Acute Assessment and Plan: -----d/t UTI with leukocytosis and tachycardia. See tx plan above. DS: Summary Hospital Course Reason for hospitalization: UTI Hospital Course: Patient is a 79-year-old female with chronic UTIs and chronic constipation who presented emergency room for altered mental status. Temperature 36.4?, pulse 86, respiratory rate 17, blood pressure 107/61, pulse ox 94 in the ER. Initial white blood cell count 23.3, BUN 66, creatinine 1.4. Brain CT negative for acute pathology. UA very suspicious for UTI. Patient was started on ceftriaxone and admitted to the hospitalist service. Although pt had not received full treatment yet, family was worried that she was getting worse with treatment. Her white count increased and the patient's confusion did not improve and seem to wax and wane. She had abdominal pain on exam and CT of the abdomen pelvis showed fecal impaction with severely distended bladder wall thickening with acute cystitis with a Garcia catheter in place. She aspirated 04/09. I spoke extensively with the POA, who stated she did not want her mom to 'be miserable' anymore. With her declining status at home and multiple UTI with aspiration, she decided to pursue hospice and stop treatment for infection. Please see further details above. Status at Discharge Functional status at discharge: bed bound Overall status at discharge: patient is progressing back to baseline Time Spent with Pat
--- NOTE | 2020-04-11 12:32 | PC.NURSE ---
Documentation entered by Taylor Zarco RN has been reviewed for accuracy and completion by Chani Mcfarlane RN.
--- NOTE | 2020-04-11 14:41 | PC.NURSE ---
Documentation recorded by Taylor Zarco RN has been reviewed for completion and accuracy by Chani Mcfarlane RN.
== END 2020-04-11 14:40 | disposition hospice, home (50) | DRG 872 ==
LOC: ANHED 13:19 → ANH2MED 15:26
PROVIDERS: Nurse Practitioner; Physician Assistant; Admitting Provider Internal Medicine; Emergency Provider Emergency Medicine; PCP Family Medicine; Visit Provider Family Medicine
DX: A41.9 Sepsis, unspecified organism (principal); N30.00 Acute cystitis without hematuria; I13.0 Hypertensive heart and chronic kidney disease with heart failure and stage 1 through stage 4 chronic kidney disease, or unspecified chronic kidney disease; I50.32 Chronic diastolic (congestive) heart failure; T17.820A Food in other parts of respiratory tract causing asphyxiation, initial encounter; N18.3 Chronic kidney disease, stage 3 (moderate); E03.9 Hypothyroidism, unspecified; F32.9 Major depressive disorder, single episode, unspecified; E78.5 Hyperlipidemia, unspecified; D63.1 Anemia in chronic kidney disease
CPT/HCPCS: 36415; 36600; 51701; 70450; 74176; 80053; 81001; 82140; 82375; 82805; 82948; 83050; 83605; 83735; 84443; 84484; 85025; 85610; 85730; 86140; 87040; 87077; 87086; 87088; 87186; 93005; 93880; 96361; 96365; 96367; 96376; 99285; A9270; G0378; J0131; J0692; J0696; J2270; J3370; J7030; J7120